=== PATIENT | male | born 1940 | race Caucasian/White ===

== ENCOUNTER 2019-10-31 07:11 | Inpatient (IN) | payer BC, MEDICARE ==
[~2019-10-31] VITALS: Ht 182.9 cm; Wt 101.8 kg
[2019-10-31] MEDS ORDERED: SODIUM CHLORIDE 0.9% 500 ML IV ONE (07:49)
[2019-10-31] MEDS ORDERED: ACETAMINOPHEN 325MG TABLET PO STA (07:49)
[2019-10-31 08:48] LABS: BASOPHILS % 0.6 % (0.0-2.0); EOSINOPHILS % 0.1 % (0.0-5.0); HEMATOCRIT. 47.8 % (42.0-52.0); HEMOGLOBIN. 16.1 g/dL (14.0-18.0); LYMPHOCYTES % 10.4 % (20.0-50.0); MEAN CORPUSCULAR HEMOGLOBIN 28.8 pg (28.0-32.0); MEAN CORPUSCULAR VOLUME 85.5 fL (80.0-94.0); MEAN PLATELET VOLUME 8.9 fl (7.4-10.4); MONOCYTES % 6.7 % (2.0-8.0); NEUTROPHILS % 82.2 % (40.0-76.0); PLATELET 244 x1000/uL (130-400); RED CELL DISTRIBUTION WIDTH 14.3 % (11.6-14.6)
[2019-10-31 08:52] LABS: CHLORIDE 104 mEq/L (98-107); INR 1.1
[2019-10-31 08:56] LABS: ETHANOL BLOOD < 10 mg/dL
[2019-10-31 09:01] LABS: CREATINE KINASE 375 IU/L (39-308)
[2019-10-31 09:04] LABS: CREATINE KINASE MB FRACTION 7.7 ng/mL (0.5-3.6)
[2019-10-31] MEDS ORDERED: ASPIRIN 81MG TABLET PO ONE (09:30)
[2019-10-31 10:36] LABS: CREATINE KINASE MB FRACTION 9.2 ng/mL (0.5-3.6)
[2019-10-31] MEDS ORDERED: ACETAMINOPHEN 325MG TABLET PO PRN (10:45)
[2019-10-31] MEDS ORDERED: ONDANSETRON HCL 4MG/2ML INJ IV PRN (10:45)
[2019-10-31] MEDS ORDERED: METOPROLOL TARTRATE 25MG TABLET PO ONE (11:15)
[2019-10-31] MEDS ORDERED: LISINOPRIL 5MG TABLET PO SCH (11:30)
[2019-10-31 13:24] LABS: CLARITY URINE CLOUDY (CLEAR); COLOR URINE DARK YELLOW (YELLOW); KETONES URINE 1+ (NEGATIVE); LEUKOCYTE ESTERASE URINE NEGATIVE (NEGATIVE); NITRITE URINE NEGATIVE (NEGATIVE); OCCULT BLOOD URINE NEGATIVE (NEGATIVE); PROTEIN URINE 2+ (NEGATIVE); SPECIFIC GRAVITY URINE 1.032 (1.005-1.030)
[2019-10-31 13:47] LABS: OPIATES URINE SCREEN NEGATIVE (NEGATIVE); PHENCYCLIDINE URINE SCREEN NEGATIVE (NEGATIVE)
[2019-10-31 13:48] LABS: *AMPHETAMINES SCREEN URINE NEGATIVE (NEGATIVE); *BARBITURATES SCREEN URINE NEGATIVE (NEGATIVE); *BENZODIAZEPINES SCREEN URINE NEGATIVE (NEGATIVE); *COCAINE SCREEN URINE NEGATIVE (NEGATIVE); CANNABINOID URINE SCREEN NEGATIVE (NEGATIVE)
[2019-10-31 13:49] LABS: METHADONE URINE SCREEN NEGATIVE (NEGATIVE)
[2019-10-31] MEDS ORDERED: METOPROLOL TARTRATE 50MG TABLET PO NR (17:30)
[2019-10-31] MEDS ORDERED: DEXTROSE 50% WATER 50ML SYRINGE IV PRN (17:30)
[2019-10-31] MEDS ORDERED: ATORVASTATIN CALCIUM 20MG TABLET PO SCH (21:00)
[2019-10-31] MEDS: INSULIN LISPRO 100 UNITS/ML SUBCUT SCH (21:00)
[2019-10-31] MEDS ORDERED: ENOXAPARIN 100MG/ML SYR SUBCUT SCH (21:00)
[2019-10-31] MEDS: BLOOD SUGAR DIAGNOSTIC STRIP TEST SCH (21:00)
[2019-10-31 22:00] VITALS: BP_SYST 140; BP_SYST 145; BP_DIAS 92; BP_DIAS 95
[2019-11-01] VITALS (15 sets, daily range): BP systolic 97–170; BP diastolic 49–93
[2019-11-01] MEDS: ATORVASTATIN CALCIUM 20MG TABLET PO SCH ×2 (04:00→20:50)
[2019-11-01] MEDS: METOPROLOL TARTRATE 25MG TABLET PO SCH ×3 (05:03→20:51)
[2019-11-01 05:39] LABS: EOSINOPHILS % 1.3 % (0.0-5.0); HEMATOCRIT. 44.5 % (42.0-52.0); HEMOGLOBIN. 15.3 g/dL (14.0-18.0); LYMPHOCYTES % 17.6 % (20.0-50.0); MEAN CORPUSCULAR HEMOGLOBIN 29.3 pg (28.0-32.0); MEAN CORPUSCULAR VOLUME 85.5 fL (80.0-94.0); MEAN PLATELET VOLUME 8.8 fl (7.4-10.4); NEUTROPHILS % 73.1 % (40.0-76.0); PLATELET 224 x1000/uL (130-400); RED BLOOD CELL COUNT 5.21 mill/uL (4.7-6.1); RED CELL DISTRIBUTION WIDTH 14.4 % (11.6-14.6)
[2019-11-01 05:57] LABS: CHLORIDE 106 mEq/L (98-107)
[2019-11-01] MEDS: BLOOD SUGAR DIAGNOSTIC STRIP TEST SCH ×4 (05:58→20:58)
[2019-11-01 06:05] LABS: CREATINE KINASE 288 IU/L (39-308)
[2019-11-01] MEDS: INSULIN LISPRO 100 UNITS/ML SUBCUT SCH ×4 (07:20→20:58)
[2019-11-01] MEDS ORDERED: ASPIRIN 81MG EC TABLET PO SCH ×2 (09:00)
[2019-11-01] MEDS: LISINOPRIL 5MG TABLET PO SCH (09:21)
[2019-11-02] VITALS (15 sets, daily range): BP systolic 110–148; BP diastolic 64–95
[2019-11-02] MEDS: BLOOD SUGAR DIAGNOSTIC STRIP TEST SCH ×4 (05:43→21:30)
[2019-11-02] MEDS: ASPIRIN 325MG EC TABLET PO SCH (08:29)
[2019-11-02] MEDS: LISINOPRIL 5MG TABLET PO SCH (08:29)
[2019-11-02] MEDS: INSULIN LISPRO 100 UNITS/ML SUBCUT SCH ×4 (09:17→21:47)
[2019-11-02] MEDS: METOPROLOL TARTRATE 25MG TABLET PO SCH ×2 (09:22→21:32)
[2019-11-02 12:35] LABS: BASOPHILS % 0.8 % (0.0-2.0); EOSINOPHILS % 0.8 % (0.0-5.0); HEMATOCRIT. 47.4 % (42.0-52.0); HEMOGLOBIN. 16.3 g/dL (14.0-18.0); MEAN CORPUSCULAR HEMOGLOBIN 29.5 pg (28.0-32.0); MEAN CORPUSCULAR VOLUME 85.5 fL (80.0-94.0); MONOCYTES % 7.9 % (2.0-8.0); NEUTROPHILS % 67.5 % (40.0-76.0); PLATELET 245 x1000/uL (130-400); RED BLOOD CELL COUNT 5.54 mill/uL (4.7-6.1)
[2019-11-02 12:42] LABS: CHLORIDE 105 mEq/L (98-107)
[2019-11-02] MEDS: ATORVASTATIN CALCIUM 20MG TABLET PO SCH (21:32)
[2019-11-03] VITALS (15 sets, daily range): BP systolic 121–179; BP diastolic 50–110
[2019-11-03] MEDS: BLOOD SUGAR DIAGNOSTIC STRIP TEST SCH ×4 (05:50→20:23)
[2019-11-03 06:22] LABS: FOLIC ACID (FOLATE) SERUM 12.7 ng/mL (>5.38)
[2019-11-03] MEDS: INSULIN LISPRO 100 UNITS/ML SUBCUT SCH ×4 (08:11→20:35)
[2019-11-03] MEDS: ASPIRIN 325MG EC TABLET PO SCH (08:12)
[2019-11-03] MEDS: METOPROLOL TARTRATE 25MG TABLET PO SCH ×2 (08:12→20:23)
[2019-11-03] MEDS: LISINOPRIL 5MG TABLET PO SCH (08:12)
[2019-11-03] MEDS ORDERED: LISINOPRIL 5MG TABLET PO NR (09:15)
[2019-11-03] MEDS: APIXABAN 5 MG TABLET PO SCH ×2 (09:53→18:09)
[2019-11-03] MEDS: CYANOCOBALAMIN 1000MCG/ML VIAL IM SCH (13:24)
[2019-11-03] MEDS: ATORVASTATIN CALCIUM 20MG TABLET PO SCH (20:23)
[2019-11-04] VITALS (9 sets, daily range): BP systolic 99–161; BP diastolic 55–102
[2019-11-04] MEDS: BLOOD SUGAR DIAGNOSTIC STRIP TEST SCH ×3 (07:15→16:53)
[2019-11-04 07:26] LABS: BASOPHILS % 0.6 % (0.0-2.0); EOSINOPHILS % 1.1 % (0.0-5.0); HEMATOCRIT. 46.6 % (42.0-52.0); LYMPHOCYTES % 16.4 % (20.0-50.0); MEAN CORPUSCULAR HEMOGLOBIN 29.4 pg (28.0-32.0); MEAN CORPUSCULAR VOLUME 85.5 fL (80.0-94.0); MEAN PLATELET VOLUME 8.8 fl (7.4-10.4); MONOCYTES % 7.6 % (2.0-8.0); NEUTROPHILS % 74.3 % (40.0-76.0); PLATELET 210 x1000/uL (130-400); RED BLOOD CELL COUNT 5.45 mill/uL (4.7-6.1); RED CELL DISTRIBUTION WIDTH 14.1 % (11.6-14.6)
[2019-11-04 07:28] LABS: CHLORIDE 105 mEq/L (98-107)
[2019-11-04] MEDS: APIXABAN 5 MG TABLET PO SCH (08:34)
[2019-11-04] MEDS: METOPROLOL TARTRATE 25MG TABLET PO SCH (08:35)
[2019-11-04] MEDS: CYANOCOBALAMIN 1000MCG/ML VIAL IM SCH (08:35)
[2019-11-04] MEDS: INSULIN LISPRO 100 UNITS/ML SUBCUT SCH ×3 (08:37→16:53)
[2019-11-04] MEDS ORDERED: LISINOPRIL 10MG TABLET PO SCH (09:00)
[2019-11-05] MEDS ORDERED: NITR0.4T SL (05:58)
[2019-11-05] MEDS ORDERED: METO75TA PO (05:58)
[2019-11-05] MEDS ORDERED: HYDR25TA PO (05:58)
[2019-11-05] MEDS ORDERED: ASPI-1497 PO (05:58)
[2019-11-05] MEDS ORDERED: ENAL20TA PO (05:58)
[2019-11-08 09:06] LABS: 25-HYDROXY VITAMIN D3 6.1 ng/mL (.)
[2019-11-17] MEDS ORDERED: CYANOCOBALAMIN 1000MCG/ML VIAL IM SCH (09:00)
== END 2019-11-04 17:30 | DRG 64 ==
LOC: ER 07:21 → 6WST 09:31 → UNDOADMIN 09:31 → EDBEDREQ 09:35 → EDBEDREQSVC 09:35 → ENRESERV 10:27 → 3WST 19:30 → CMPBEDREQ 11-01 07:09
PROVIDERS: ADMIT Internal Medicine; ATTEND Internal Medicine
DX: I63.9 Cerebral infarction, unspecified (principal); I21.4 Non-ST elevation (NSTEMI) myocardial infarction; M62.82 Rhabdomyolysis; I48.92 Unspecified atrial flutter; E11.52 Type 2 diabetes mellitus with diabetic peripheral angiopathy with gangrene; E78.5 Hyperlipidemia, unspecified; I48.91 Unspecified atrial fibrillation; I25.10 Atherosclerotic heart disease of native coronary artery without angina pectoris; L98.9 Disorder of the skin and subcutaneous tissue, unspecified; E78.00 Pure hypercholesterolemia, unspecified; L57.0 Actinic keratosis; E53.8 Deficiency of other specified B group vitamins; I11.0 Hypertensive heart disease with heart failure; I50.9 Heart failure, unspecified; M19.90 Unspecified osteoarthritis, unspecified site; G90.8 Other disorders of autonomic nervous system; Z53.29 Procedure and treatment not carried out because of patient's decision for other reasons; Z60.2 Problems related to living alone; I65.22 Occlusion and stenosis of left carotid artery; Z79.82 Long term (current) use of aspirin; Z86.73 Personal history of transient ischemic attack (TIA), and cerebral infarction without residual deficits; Z83.3 Family history of diabetes mellitus; Z91.19 Patient's noncompliance with other medical treatment and regimen; Z79.899 Other long term (current) drug therapy; Z95.5 Presence of coronary angioplasty implant and graft; I25.2 Old myocardial infarction
CPT/HCPCS: 36415; 70486; 70551; 71045; 72170; 73080; 73562; 80048; 80053; 80061; 80305; 80320; 81003; 82306; 82550; 82553; 82607; 82746; 82962; 83036; 83735; 83880; 84145; 84443; 84484; 85025; 92523; 92610; 93005; 93306; 93880; 97116; 97162; 97166; 97530; 99291; J1650; J1815; J3420; J7040; G0480

== ENCOUNTER 2019-11-04 18:30 | Inpatient (IN) | payer MEDICARE, OTHER ==
[~2019-11-04] VITALS: Ht 182.9 cm; Wt 105.7 kg
[2019-11-04 17:30] VITALS: BP_SYST 106; BP_SYST 132; BP_DIAS 72; BP_DIAS 90
[2019-11-04 18:45] VITALS: BP 132/90
[2019-11-04] MEDS ORDERED: ACETAMINOPHEN 325MG TABLET PO PRN (18:45)
[2019-11-04] MEDS ORDERED: DEXTROSE 50% WATER 50ML SYRINGE IV PRN (18:45)
[2019-11-04] MEDS ORDERED: ONDANSETRON HCL 4MG TABLET PO PRN (18:45)
[2019-11-04 20:00] VITALS: BP 137/80
[2019-11-04] MEDS ORDERED: PNEUMOCOCCAL 23-VAL P-SAC VAC 0.5 ML IM ONE (20:30)
[2019-11-04] MEDS: ATORVASTATIN CALCIUM 20MG TABLET PO SCH (20:30)
[2019-11-04] MEDS: METOPROLOL TARTRATE 25MG TABLET PO SCH (20:31)
[2019-11-04] MEDS: BLOOD SUGAR DIAGNOSTIC STRIP TEST SCH (20:31)
[2019-11-04] MEDS: INSULIN LISPRO 100 UNITS/ML SUBCUT SCH (22:22)
[2019-11-05] MEDS: BLOOD SUGAR DIAGNOSTIC STRIP TEST SCH ×4 (05:33→21:05)
[2019-11-05] MEDS: INSULIN LISPRO 100 UNITS/ML SUBCUT SCH (05:33)
[2019-11-05] MEDS ORDERED: NITR0.4T SL (05:58)
[2019-11-05] MEDS ORDERED: HYDR25TA PO (05:58)
[2019-11-05] MEDS ORDERED: ASPI-1497 PO (05:58)
[2019-11-05] MEDS ORDERED: ENAL20TA PO (05:58)
[2019-11-05] MEDS ORDERED: METO75TA PO (05:58)
[2019-11-05 06:44] LABS: BASOPHILS % 0.7 % (0.0-2.0); EOSINOPHILS % 1.6 % (0.0-5.0); HEMATOCRIT. 46.8 % (42.0-52.0); HEMOGLOBIN. 15.8 g/dL (14.0-18.0); LYMPHOCYTES % 20.3 % (20.0-50.0); MEAN CORPUSCULAR HEMOGLOBIN 28.9 pg (28.0-32.0); MEAN CORPUSCULAR VOLUME 85.8 fL (80.0-94.0); MEAN PLATELET VOLUME 9.1 fl (7.4-10.4); MONOCYTES % 9.2 % (2.0-8.0); NEUTROPHILS % 68.2 % (40.0-76.0); PLATELET 204 x1000/uL (130-400); RED BLOOD CELL COUNT 5.45 mill/uL (4.7-6.1); RED CELL DISTRIBUTION WIDTH 14.2 % (11.6-14.6)
[2019-11-05 06:53] LABS: CHLORIDE 104 mEq/L (98-107)
[2019-11-05 08:00] VITALS: BP 149/85
[2019-11-05] MEDS ORDERED: NA PHOS,M-B/NA PHOS,DI-BA ENEMA 118ML PR PRN (09:00)
[2019-11-05] MEDS: APIXABAN 5 MG TABLET PO SCH ×2 (09:21→17:35)
[2019-11-05] MEDS: LISINOPRIL 10MG TABLET PO SCH (09:22)
[2019-11-05] MEDS: METOPROLOL TARTRATE 25MG TABLET PO SCH ×2 (09:22→21:05)
[2019-11-05] MEDS: LACTULOSE 20G/30ML UDC PO SCH ×3 (12:00→23:14)
[2019-11-05] MEDS ORDERED: INSULIN LISPRO 100 UNITS/ML SUBCUT SCH (13:00)
[2019-11-05] MEDS: LINAGLIPTIN 5MG TABLET PO SCH (13:39)
[2019-11-05] MEDS: INSULIN LISPRO (LOW DOSE) 100 UNITS/ML SUBCUT SCH ×2 (13:41→17:00)
[2019-11-05 20:00] VITALS: BP 158/78
[2019-11-05] MEDS: ATORVASTATIN CALCIUM 20MG TABLET PO SCH (21:05)
[2019-11-06] MEDS: BISACODYL 5MG TABLET PO PRN (05:12)
[2019-11-06] MEDS: BLOOD SUGAR DIAGNOSTIC STRIP TEST SCH ×4 (05:12→20:16)
[2019-11-06] MEDS: LACTULOSE 20G/30ML UDC PO SCH ×2 (06:00→12:00)
[2019-11-06] MEDS: INSULIN LISPRO (LOW DOSE) 100 UNITS/ML SUBCUT SCH ×3 (06:35→16:20)
[2019-11-06 07:24] LABS: BASOPHILS % 0.6 % (0.0-2.0); EOSINOPHILS % 1.9 % (0.0-5.0); HEMATOCRIT. 48.2 % (42.0-52.0); HEMOGLOBIN. 16.6 g/dL (14.0-18.0); LYMPHOCYTES % 19.2 % (20.0-50.0); MEAN CORPUSCULAR HEMOGLOBIN 29.6 pg (28.0-32.0); MEAN CORPUSCULAR VOLUME 85.9 fL (80.0-94.0); MEAN PLATELET VOLUME 8.9 fl (7.4-10.4); MONOCYTES % 9.2 % (2.0-8.0); NEUTROPHILS % 69.1 % (40.0-76.0); PLATELET 219 x1000/uL (130-400); RED BLOOD CELL COUNT 5.62 mill/uL (4.7-6.1); RED CELL DISTRIBUTION WIDTH 14.2 % (11.6-14.6)
[2019-11-06 07:28] LABS: CHLORIDE 105 mEq/L (98-107)
[2019-11-06 08:27] VITALS: BP 147/81
[2019-11-06] MEDS: LINAGLIPTIN 5MG TABLET PO SCH (08:42)
[2019-11-06] MEDS: LISINOPRIL 10MG TABLET PO SCH (08:42)
[2019-11-06] MEDS: METOPROLOL TARTRATE 25MG TABLET PO SCH ×2 (08:42→20:15)
[2019-11-06] MEDS: APIXABAN 5 MG TABLET PO SCH ×2 (08:42→16:48)
[2019-11-06 20:00] VITALS: BP 130/89
[2019-11-06] MEDS: ATORVASTATIN CALCIUM 20MG TABLET PO SCH (20:15)
[2019-11-07] MEDS: INSULIN LISPRO (LOW DOSE) 100 UNITS/ML SUBCUT SCH ×3 (05:48→16:28)
[2019-11-07] MEDS: BLOOD SUGAR DIAGNOSTIC STRIP TEST SCH ×4 (05:48→21:38)
[2019-11-07 06:43] LABS: BASOPHILS % 0.8 % (0.0-2.0); EOSINOPHILS % 1.5 % (0.0-5.0); HEMATOCRIT. 48.7 % (42.0-52.0); HEMOGLOBIN. 16.8 g/dL (14.0-18.0); LYMPHOCYTES % 16.6 % (20.0-50.0); MEAN CORPUSCULAR HEMOGLOBIN 29.7 pg (28.0-32.0); MEAN CORPUSCULAR VOLUME 86.4 fL (80.0-94.0); MEAN PLATELET VOLUME 8.9 fl (7.4-10.4); MONOCYTES % 9.6 % (2.0-8.0); NEUTROPHILS % 71.5 % (40.0-76.0); PLATELET 210 x1000/uL (130-400); RED BLOOD CELL COUNT 5.63 mill/uL (4.7-6.1); RED CELL DISTRIBUTION WIDTH 14.1 % (11.6-14.6)
[2019-11-07 07:00] LABS: CHLORIDE 104 mEq/L (98-107)
[2019-11-07 07:07] LABS: PHOSPHORUS 3.2 mg/dL (2.5-4.9)
[2019-11-07 07:23] LABS: PROSTRATE SPECIFIC AG TOTAL 3.69 ng/mL (0.0-4.0)
[2019-11-07 08:09] VITALS: BP 146/82
[2019-11-07] MEDS: METOPROLOL TARTRATE 25MG TABLET PO SCH ×2 (08:33→21:00)
[2019-11-07] MEDS: LISINOPRIL 10MG TABLET PO SCH (08:33)
[2019-11-07] MEDS: LINAGLIPTIN 5MG TABLET PO SCH (08:33)
[2019-11-07] MEDS: APIXABAN 5 MG TABLET PO SCH ×2 (08:33→17:08)
[2019-11-07 20:00] VITALS: BP 125/55
[2019-11-07] MEDS: ATORVASTATIN CALCIUM 20MG TABLET PO SCH (21:25)
[2019-11-08] MEDS: BLOOD SUGAR DIAGNOSTIC STRIP TEST SCH ×4 (06:48→21:35)
[2019-11-08] MEDS: INSULIN LISPRO (LOW DOSE) 100 UNITS/ML SUBCUT SCH ×3 (06:48→16:34)
[2019-11-08 08:01] VITALS: BP 122/61
[2019-11-08] MEDS: LINAGLIPTIN 5MG TABLET PO SCH (08:38)
[2019-11-08] MEDS: METOPROLOL TARTRATE 25MG TABLET PO SCH ×2 (08:38→21:27)
[2019-11-08] MEDS: APIXABAN 5 MG TABLET PO SCH ×2 (08:38→17:29)
[2019-11-08] MEDS: LISINOPRIL 10MG TABLET PO SCH (08:38)
[2019-11-08] MEDS: BISACODYL 5MG TABLET PO PRN (17:29)
[2019-11-08 20:00] VITALS: BP 140/68
[2019-11-08] MEDS: ATORVASTATIN CALCIUM 20MG TABLET PO SCH (21:26)
[2019-11-09] MEDS: BLOOD SUGAR DIAGNOSTIC STRIP TEST SCH ×4 (06:14→21:41)
[2019-11-09] MEDS: INSULIN LISPRO (LOW DOSE) 100 UNITS/ML SUBCUT SCH ×3 (06:15→17:00)
[2019-11-09 08:07] VITALS: BP 151/84
[2019-11-09] MEDS: METOPROLOL TARTRATE 25MG TABLET PO SCH ×2 (09:30→21:40)
[2019-11-09] MEDS: LISINOPRIL 10MG TABLET PO SCH (09:30)
[2019-11-09] MEDS: LINAGLIPTIN 5MG TABLET PO SCH (09:31)
[2019-11-09] MEDS: APIXABAN 5 MG TABLET PO SCH ×2 (09:31→17:27)
[2019-11-09 19:55] VITALS: BP 136/77
[2019-11-09] MEDS: ATORVASTATIN CALCIUM 20MG TABLET PO SCH (21:40)
[2019-11-10] MEDS: BLOOD SUGAR DIAGNOSTIC STRIP TEST SCH ×4 (05:54→21:13)
[2019-11-10] MEDS: INSULIN LISPRO (LOW DOSE) 100 UNITS/ML SUBCUT SCH ×4 (06:46→22:07)
[2019-11-10 07:35] LABS: BASOPHILS % 0.7 % (0.0-2.0); EOSINOPHILS % 1.1 % (0.0-5.0); HEMATOCRIT. 51.9 % (42.0-52.0); HEMOGLOBIN. 17.3 g/dL (14.0-18.0); LYMPHOCYTES % 22.6 % (20.0-50.0); MEAN CORPUSCULAR HEMOGLOBIN 29.2 pg (28.0-32.0); MEAN CORPUSCULAR VOLUME 87.3 fL (80.0-94.0); MEAN PLATELET VOLUME 9.8 fl (7.4-10.4); MONOCYTES % 8.5 % (2.0-8.0); NEUTROPHILS % 67.1 % (40.0-76.0); PLATELET 244 x1000/uL (130-400); RED BLOOD CELL COUNT 5.94 mill/uL (4.7-6.1); RED CELL DISTRIBUTION WIDTH 14.5 % (11.6-14.6)
[2019-11-10 07:37] VITALS: BP 150/84
[2019-11-10 07:39] LABS: CHLORIDE 103 mEq/L (98-107)
[2019-11-10] MEDS: LISINOPRIL 10MG TABLET PO SCH (08:48)
[2019-11-10] MEDS: METOPROLOL TARTRATE 25MG TABLET PO SCH ×2 (08:49→21:12)
[2019-11-10] MEDS: CYANOCOBALAMIN 1000MCG/ML VIAL IM SCH (08:49)
[2019-11-10] MEDS: LINAGLIPTIN 5MG TABLET PO SCH (08:49)
[2019-11-10] MEDS: APIXABAN 5 MG TABLET PO SCH ×2 (09:00→16:37)
[2019-11-10 20:00] VITALS: BP 134/84
[2019-11-10] MEDS: ATORVASTATIN CALCIUM 20MG TABLET PO SCH (21:11)
[2019-11-11] MEDS: BLOOD SUGAR DIAGNOSTIC STRIP TEST SCH ×5 (05:36→20:52)
[2019-11-11 07:09] LABS: 25-HYDROXY VITAMIN D3 8.2 ng/mL (.)
[2019-11-11] MEDS: INSULIN LISPRO (LOW DOSE) 100 UNITS/ML SUBCUT SCH ×3 (07:14→16:23)
[2019-11-11 07:58] VITALS: BP 168/91
[2019-11-11] MEDS: METOPROLOL TARTRATE 25MG TABLET PO SCH ×2 (08:11→20:56)
[2019-11-11] MEDS: LISINOPRIL 10MG TABLET PO SCH (08:11)
[2019-11-11] MEDS: APIXABAN 5 MG TABLET PO SCH ×2 (08:11→16:27)
[2019-11-11] MEDS: LINAGLIPTIN 5MG TABLET PO SCH (08:11)
[2019-11-11] MEDS ORDERED: LISINOPRIL 10MG TABLET PO SCH (09:00)
[2019-11-11 20:00] VITALS: BP 136/71
[2019-11-11] MEDS: ATORVASTATIN CALCIUM 20MG TABLET PO SCH (20:56)
[2019-11-11] MEDS ORDERED: ERGOCALCIFEROL 50000UNITS CAPSULE PO SCH (21:00)
[2019-11-12] MEDS: BISACODYL 5MG TABLET PO PRN (06:03)
[2019-11-12] MEDS: INSULIN LISPRO (LOW DOSE) 100 UNITS/ML SUBCUT SCH ×3 (06:09→16:33)
[2019-11-12] MEDS: BLOOD SUGAR DIAGNOSTIC STRIP TEST SCH ×4 (06:09→20:17)
[2019-11-12 06:41] LABS: BASOPHILS % 0.6 % (0.0-2.0); EOSINOPHILS % 1.1 % (0.0-5.0); HEMOGLOBIN. 16.6 g/dL (14.0-18.0); LYMPHOCYTES % 16.1 % (20.0-50.0); MEAN CORPUSCULAR HEMOGLOBIN 28.8 pg (28.0-32.0); MEAN CORPUSCULAR VOLUME 86.6 fL (80.0-94.0); MEAN PLATELET VOLUME 9.5 fl (7.4-10.4); MONOCYTES % 8.6 % (2.0-8.0); NEUTROPHILS % 73.6 % (40.0-76.0); PLATELET 222 x1000/uL (130-400); RED BLOOD CELL COUNT 5.77 mill/uL (4.7-6.1); RED CELL DISTRIBUTION WIDTH 14.7 % (11.6-14.6)
[2019-11-12 07:29] LABS: CHLORIDE 106 mEq/L (98-107)
[2019-11-12 07:38] VITALS: BP 138/74
[2019-11-12] MEDS: APIXABAN 5 MG TABLET PO SCH ×2 (08:25→16:44)
[2019-11-12] MEDS: LINAGLIPTIN 5MG TABLET PO SCH (08:25)
[2019-11-12] MEDS: LISINOPRIL 20MG TABLET PO SCH (08:25)
[2019-11-12] MEDS: METOPROLOL TARTRATE 25MG TABLET PO SCH ×2 (08:26→20:17)
[2019-11-12 20:00] VITALS: BP 136/61
[2019-11-12] MEDS: ATORVASTATIN CALCIUM 40MG TABLET PO SCH (20:17)
[2019-11-13] MEDS: INSULIN LISPRO (LOW DOSE) 100 UNITS/ML SUBCUT SCH ×3 (05:54→17:00)
[2019-11-13] MEDS: BLOOD SUGAR DIAGNOSTIC STRIP TEST SCH ×4 (05:54→20:51)
[2019-11-13 07:45] LABS: BASOPHILS % 0.5 % (0.0-2.0); HEMATOCRIT. 46.8 % (42.0-52.0); LYMPHOCYTES % 23.3 % (20.0-50.0); MEAN CORPUSCULAR HEMOGLOBIN 29.6 pg (28.0-32.0); MEAN CORPUSCULAR VOLUME 86.8 fL (80.0-94.0); MEAN PLATELET VOLUME 10.1 fl (7.4-10.4); MONOCYTES % 10.4 % (2.0-8.0); NEUTROPHILS % 64.8 % (40.0-76.0); PLATELET 226 x1000/uL (130-400); RED BLOOD CELL COUNT 5.39 mill/uL (4.7-6.1); RED CELL DISTRIBUTION WIDTH 14.4 % (11.6-14.6)
[2019-11-13 08:00] VITALS: BP 161/75
[2019-11-13 08:13] LABS: CLARITY URINE CLEAR (CLEAR); COLOR URINE DARK YELLOW (YELLOW); KETONES URINE 1+ (NEGATIVE); LEUKOCYTE ESTERASE URINE TRACE (NEGATIVE); NITRITE URINE NEGATIVE (NEGATIVE); OCCULT BLOOD URINE NEGATIVE (NEGATIVE); PROTEIN URINE 1+ (NEGATIVE); SPECIFIC GRAVITY URINE 1.023 (1.005-1.030)
[2019-11-13] MEDS: LISINOPRIL 20MG TABLET PO SCH (09:13)
[2019-11-13] MEDS: LINAGLIPTIN 5MG TABLET PO SCH (09:13)
[2019-11-13] MEDS: APIXABAN 5 MG TABLET PO SCH ×2 (09:13→17:54)
[2019-11-13] MEDS: METOPROLOL TARTRATE 25MG TABLET PO SCH ×2 (09:13→20:50)
[2019-11-13 20:00] VITALS: BP 106/37
[2019-11-13] MEDS: ATORVASTATIN CALCIUM 40MG TABLET PO SCH (20:50)
[2019-11-14] MEDS: BLOOD SUGAR DIAGNOSTIC STRIP TEST SCH ×4 (06:12→21:14)
[2019-11-14] MEDS: INSULIN LISPRO (LOW DOSE) 100 UNITS/ML SUBCUT SCH ×3 (06:15→16:59)
[2019-11-14 08:00] VITALS: BP 128/67
[2019-11-14 08:03] LABS: BASOPHILS % 0.6 % (0.0-2.0); EOSINOPHILS % 1.3 % (0.0-5.0); HEMOGLOBIN. 16.9 g/dL (14.0-18.0); LYMPHOCYTES % 25.6 % (20.0-50.0); MEAN CORPUSCULAR HEMOGLOBIN 29.1 pg (28.0-32.0); MEAN CORPUSCULAR VOLUME 86.4 fL (80.0-94.0); MEAN PLATELET VOLUME 10.3 fl (7.4-10.4); MONOCYTES % 10.4 % (2.0-8.0); NEUTROPHILS % 62.1 % (40.0-76.0); PLATELET 221 x1000/uL (130-400); RED BLOOD CELL COUNT 5.79 mill/uL (4.7-6.1); RED CELL DISTRIBUTION WIDTH 14.3 % (11.6-14.6)
[2019-11-14] MEDS: METOPROLOL TARTRATE 25MG TABLET PO SCH ×2 (08:54→21:29)
[2019-11-14] MEDS: LISINOPRIL 20MG TABLET PO SCH (08:54)
[2019-11-14] MEDS: LINAGLIPTIN 5MG TABLET PO SCH (08:54)
[2019-11-14] MEDS: APIXABAN 5 MG TABLET PO SCH ×2 (08:54→16:55)
[2019-11-14] MEDS: BISACODYL 5MG TABLET PO PRN (16:55)
[2019-11-14 20:00] VITALS: BP 126/84
[2019-11-14] MEDS: ATORVASTATIN CALCIUM 40MG TABLET PO SCH (21:29)
[2019-11-15] MEDS: INSULIN LISPRO (LOW DOSE) 100 UNITS/ML SUBCUT SCH ×3 (06:26→16:39)
[2019-11-15] MEDS: BLOOD SUGAR DIAGNOSTIC STRIP TEST SCH ×4 (06:27→21:00)
[2019-11-15 07:28] VITALS: BP 154/104
[2019-11-15] MEDS: LISINOPRIL 20MG TABLET PO SCH ×2 (08:15→09:00)
[2019-11-15] MEDS: LINAGLIPTIN 5MG TABLET PO SCH (08:15)
[2019-11-15] MEDS: APIXABAN 5 MG TABLET PO SCH ×2 (08:15→20:54)
[2019-11-15] MEDS: METOPROLOL TARTRATE 25MG TABLET PO SCH ×2 (08:15→20:55)
[2019-11-15 20:00] VITALS: BP 136/61
[2019-11-15] MEDS: ATORVASTATIN CALCIUM 40MG TABLET PO SCH (20:55)
[2019-11-16] MEDS: BLOOD SUGAR DIAGNOSTIC STRIP TEST SCH ×4 (06:30→21:00)
[2019-11-16] MEDS: INSULIN LISPRO (LOW DOSE) 100 UNITS/ML SUBCUT SCH ×4 (07:00→22:11)
[2019-11-16 07:51] VITALS: BP 155/97
[2019-11-16] MEDS: METOPROLOL TARTRATE 25MG TABLET PO SCH ×2 (08:43→22:10)
[2019-11-16] MEDS: APIXABAN 5 MG TABLET PO SCH ×2 (08:43→16:18)
[2019-11-16] MEDS: LINAGLIPTIN 5MG TABLET PO SCH (08:43)
[2019-11-16] MEDS: LISINOPRIL 20MG TABLET PO SCH (08:43)
[2019-11-16 20:00] VITALS: BP 106/73
[2019-11-16] MEDS: ATORVASTATIN CALCIUM 40MG TABLET PO SCH (22:10)
[2019-11-17] MEDS: BLOOD SUGAR DIAGNOSTIC STRIP TEST SCH ×4 (06:04→20:33)
[2019-11-17 07:54] VITALS: BP 156/82
[2019-11-17 09:01] LABS: CHLORIDE 105 mEq/L (98-107)
[2019-11-17] MEDS: CYANOCOBALAMIN 1000MCG/ML VIAL IM SCH (09:10)
[2019-11-17] MEDS: APIXABAN 5 MG TABLET PO SCH ×2 (09:10→18:47)
[2019-11-17] MEDS: LISINOPRIL 20MG TABLET PO SCH (09:10)
[2019-11-17] MEDS: METOPROLOL TARTRATE 25MG TABLET PO SCH ×2 (09:10→20:33)
[2019-11-17] MEDS: LINAGLIPTIN 5MG TABLET PO SCH (09:10)
[2019-11-17 09:13] LABS: BASOPHILS % 0.6 % (0.0-2.0); HEMATOCRIT. 49.5 % (42.0-52.0); HEMOGLOBIN. 16.6 g/dL (14.0-18.0); LYMPHOCYTES % 22.6 % (20.0-50.0); MEAN CORPUSCULAR HEMOGLOBIN 29.2 pg (28.0-32.0); MEAN CORPUSCULAR VOLUME 87.3 fL (80.0-94.0); MEAN PLATELET VOLUME 9.9 fl (7.4-10.4); MONOCYTES % 8.2 % (2.0-8.0); NEUTROPHILS % 67.6 % (40.0-76.0); PLATELET 243 x1000/uL (130-400); RED BLOOD CELL COUNT 5.67 mill/uL (4.7-6.1); RED CELL DISTRIBUTION WIDTH 14.9 % (11.6-14.6)
[2019-11-17] MEDS: INSULIN LISPRO (LOW DOSE) 100 UNITS/ML SUBCUT SCH ×2 (13:00→17:00)
[2019-11-17 20:00] VITALS: BP 100/54
[2019-11-17] MEDS: ATORVASTATIN CALCIUM 40MG TABLET PO SCH (20:33)
[2019-11-18] MEDS: BISACODYL 5MG TABLET PO PRN (06:12)
[2019-11-18] MEDS: BLOOD SUGAR DIAGNOSTIC STRIP TEST SCH ×4 (06:12→20:07)
[2019-11-18] MEDS: INSULIN LISPRO (LOW DOSE) 100 UNITS/ML SUBCUT SCH ×3 (06:17→16:35)
[2019-11-18 08:01] VITALS: BP 125/83
[2019-11-18] MEDS ORDERED: ERGOCALCIFEROL 50000UNITS CAPSULE PO SCH (09:00)
[2019-11-18] MEDS: APIXABAN 5 MG TABLET PO SCH ×2 (09:12→17:30)
[2019-11-18] MEDS: LISINOPRIL 20MG TABLET PO SCH (09:12)
[2019-11-18] MEDS: METOPROLOL TARTRATE 25MG TABLET PO SCH ×2 (09:12→20:06)
[2019-11-18] MEDS: LINAGLIPTIN 5MG TABLET PO SCH (09:12)
[2019-11-18 20:00] VITALS: BP 122/57
[2019-11-18] MEDS: ATORVASTATIN CALCIUM 40MG TABLET PO SCH (20:06)
[2019-11-19] MEDS: BLOOD SUGAR DIAGNOSTIC STRIP TEST SCH ×4 (06:13→21:18)
[2019-11-19] MEDS: INSULIN LISPRO (LOW DOSE) 100 UNITS/ML SUBCUT SCH ×3 (06:16→16:25)
[2019-11-19 08:06] VITALS: BP 121/72
[2019-11-19] MEDS: LINAGLIPTIN 5MG TABLET PO SCH (08:25)
[2019-11-19] MEDS: LISINOPRIL 20MG TABLET PO SCH (08:25)
[2019-11-19] MEDS: APIXABAN 5 MG TABLET PO SCH ×2 (08:25→16:58)
[2019-11-19] MEDS: METOPROLOL TARTRATE 25MG TABLET PO SCH ×2 (08:25→20:49)
[2019-11-19 11:40] VITALS: BP 101/47
[2019-11-19 20:00] VITALS: BP 130/69
[2019-11-19] MEDS: ATORVASTATIN CALCIUM 40MG TABLET PO SCH (21:48)
[2019-11-20] MEDS: BLOOD SUGAR DIAGNOSTIC STRIP TEST SCH ×4 (06:46→20:26)
[2019-11-20] MEDS: INSULIN LISPRO (LOW DOSE) 100 UNITS/ML SUBCUT SCH ×3 (07:00→17:00)
[2019-11-20 07:41] LABS: CHLORIDE 106 mEq/L (98-107)
[2019-11-20 08:20] VITALS: BP 103/61
[2019-11-20] MEDS: METOPROLOL TARTRATE 25MG TABLET PO SCH ×2 (09:00→20:26)
[2019-11-20] MEDS ORDERED: LISINOPRIL 10MG TABLET PO SCH (09:00)
[2019-11-20] MEDS ORDERED: LISINOPRIL 20MG TABLET PO SCH (09:00)
[2019-11-20] MEDS: LINAGLIPTIN 5MG TABLET PO SCH (09:30)
[2019-11-20] MEDS: APIXABAN 5 MG TABLET PO SCH ×2 (09:30→17:33)
[2019-11-20 20:00] VITALS: BP 112/59
[2019-11-20] MEDS: ATORVASTATIN CALCIUM 40MG TABLET PO SCH (20:25)
[2019-11-21 06:50] LABS: CHLORIDE 105 mEq/L (98-107)
[2019-11-21 06:56] LABS: BASOPHILS % 0.4 % (0.0-2.0); EOSINOPHILS % 1.2 % (0.0-5.0); HEMATOCRIT. 46.9 % (42.0-52.0); HEMOGLOBIN. 16.2 g/dL (14.0-18.0); LYMPHOCYTES % 18.8 % (20.0-50.0); MEAN CORPUSCULAR HEMOGLOBIN 29.6 pg (28.0-32.0); MEAN CORPUSCULAR VOLUME 85.6 fL (80.0-94.0); MEAN PLATELET VOLUME 10.1 fl (7.4-10.4); MONOCYTES % 9.3 % (2.0-8.0); NEUTROPHILS % 70.3 % (40.0-76.0); PLATELET 205 x1000/uL (130-400); RED BLOOD CELL COUNT 5.48 mill/uL (4.7-6.1); RED CELL DISTRIBUTION WIDTH 14.2 % (11.6-14.6)
[2019-11-21] MEDS: INSULIN LISPRO (LOW DOSE) 100 UNITS/ML SUBCUT SCH ×3 (06:56→16:20)
[2019-11-21] MEDS: BLOOD SUGAR DIAGNOSTIC STRIP TEST SCH ×4 (06:56→21:15)
[2019-11-21 07:03] LABS: PHOSPHORUS 2.8 mg/dL (2.5-4.9)
[2019-11-21 08:00] VITALS: BP_SYST 108; BP_SYST 125; BP_DIAS 73; BP_DIAS 76
[2019-11-21] MEDS: METOPROLOL TARTRATE 25MG TABLET PO SCH ×2 (09:07→21:00)
[2019-11-21] MEDS: LISINOPRIL 20MG TABLET PO SCH (09:07)
[2019-11-21] MEDS: APIXABAN 5 MG TABLET PO SCH ×2 (09:07→16:41)
[2019-11-21] MEDS: LINAGLIPTIN 5MG TABLET PO SCH (09:07)
[2019-11-21 20:00] VITALS: BP 104/64
[2019-11-21] MEDS: LISINOPRIL 10MG TABLET PO SCH (21:00)
[2019-11-21] MEDS: ATORVASTATIN CALCIUM 40MG TABLET PO SCH (21:11)
[2019-11-22] MEDS: BLOOD SUGAR DIAGNOSTIC STRIP TEST SCH ×4 (05:33→21:19)
[2019-11-22] MEDS: INSULIN LISPRO (LOW DOSE) 100 UNITS/ML SUBCUT SCH ×3 (06:01→16:40)
[2019-11-22 07:49] VITALS: BP_SYST 146; BP_SYST 97; BP_DIAS 60; BP_DIAS 85
[2019-11-22] MEDS: LISINOPRIL 20MG TABLET PO SCH (08:28)
[2019-11-22] MEDS: LINAGLIPTIN 5MG TABLET PO SCH (08:28)
[2019-11-22] MEDS: METOPROLOL TARTRATE 25MG TABLET PO SCH ×2 (08:28→21:08)
[2019-11-22] MEDS: APIXABAN 5 MG TABLET PO SCH ×2 (08:28→16:40)
[2019-11-22] MEDS ORDERED: APIX5TAB PO (10:52)
[2019-11-22] MEDS ORDERED: LIP40 PO (10:52)
[2019-11-22] MEDS ORDERED: METO25TA6 PO (10:52)
[2019-11-22] MEDS ORDERED: LINA5TAB PO (10:52)
[2019-11-22] MEDS ORDERED: LISI-604 PO (10:52)
[2019-11-22 20:00] VITALS: BP 138/65
[2019-11-22] MEDS: ATORVASTATIN CALCIUM 40MG TABLET PO SCH (21:08)
[2019-11-22] MEDS: LISINOPRIL 10MG TABLET PO SCH (21:09)
[2019-11-23] MEDS: BLOOD SUGAR DIAGNOSTIC STRIP TEST SCH ×2 (06:16→11:26)
[2019-11-23] MEDS: INSULIN LISPRO (LOW DOSE) 100 UNITS/ML SUBCUT SCH ×2 (06:17→12:33)
[2019-11-23 08:10] VITALS: BP 158/85
[2019-11-23] MEDS: METOPROLOL TARTRATE 25MG TABLET PO SCH (09:22)
[2019-11-23] MEDS: LINAGLIPTIN 5MG TABLET PO SCH (09:22)
[2019-11-23] MEDS: LISINOPRIL 20MG TABLET PO SCH (09:22)
[2019-11-23 09:36] VITALS: BP 158/85
[2019-11-23] MEDS: APIXABAN 5 MG TABLET PO SCH (11:26)
== END 2019-11-23 13:30 | disposition home health service (06) | DRG 64 ==
PROVIDERS: ADMIT Physical Medicine & Rehabilitation Spinal Cord Injury Medicine; ATTEND Internal Medicine
DX: I63.9 Cerebral infarction, unspecified (principal); I21.4 Non-ST elevation (NSTEMI) myocardial infarction; M62.82 Rhabdomyolysis; E11.52 Type 2 diabetes mellitus with diabetic peripheral angiopathy with gangrene; I48.20 Chronic atrial fibrillation, unspecified; I48.92 Unspecified atrial flutter; I25.10 Atherosclerotic heart disease of native coronary artery without angina pectoris; Z60.2 Problems related to living alone; I10 Essential (primary) hypertension; I65.22 Occlusion and stenosis of left carotid artery; E53.8 Deficiency of other specified B group vitamins; R53.81 Other malaise; E78.00 Pure hypercholesterolemia, unspecified; D72.829 Elevated white blood cell count, unspecified; B35.1 Tinea unguium; E55.9 Vitamin D deficiency, unspecified; E11.65 Type 2 diabetes mellitus with hyperglycemia; E78.5 Hyperlipidemia, unspecified; R26.9 Unspecified abnormalities of gait and mobility; L98.9 Disorder of the skin and subcutaneous tissue, unspecified; Z79.82 Long term (current) use of aspirin; Z95.5 Presence of coronary angioplasty implant and graft; Z82.49 Family history of ischemic heart disease and other diseases of the circulatory system; Z83.3 Family history of diabetes mellitus; Z86.73 Personal history of transient ischemic attack (TIA), and cerebral infarction without residual deficits; Z91.19 Patient's noncompliance with other medical treatment and regimen; Z87.891 Personal history of nicotine dependence; Z79.899 Other long term (current) drug therapy
CPT/HCPCS: 36415; 71046; 80048; 80053; 81003; 82306; 82533; 82607; 82962; 83036; 83735; 84100; 84134; 84153; 84439; 84443; 84681; 85025; 92523; 92610; 93970; 97110; 97112; 97116; 97162; 97167; 97530; 97535; J1815; J3420; G0103

== ENCOUNTER 2020-03-21 06:41 | Inpatient (IN) | payer MEDICARE, MEDICAID ==
[~2020-03-21] VITALS: Ht 182.9 cm; Wt 96.2 kg
[~2020-03-21 06:41] MED LIST: APIX5TAB PO; LINA5TAB PO; LIP40 PO; LISI-604 PO; METO25TA6 PO; NITR0.4T SL
[2020-03-21] MEDS ORDERED: PIPERACILLIN/TAZ 3.375G PREMIX 50 ML IV ONE (07:00)
[2020-03-21] MEDS ORDERED: SODIUM CHLORIDE 0.9% 1000ML BAG (SEPSIS BOLUS) IV ONE (07:00)
[2020-03-21] MEDS ORDERED: VANCOMYCIN 1 G PREMIX 200 ML IV ONE (07:00)
[2020-03-21 07:26] LABS: HEMATOCRIT. 40.1 % (42.0-52.0); HEMOGLOBIN. 13.7 g/dL (14.0-18.0); MEAN CORPUSCULAR HEMOGLOBIN 28.7 pg (28.0-32.0); MEAN CORPUSCULAR VOLUME 84.2 fL (80.0-94.0); PLATELET 327 x1000/uL (130-400); RED BLOOD CELL COUNT 4.76 mill/uL (4.7-6.1); RED CELL DISTRIBUTION WIDTH 14.9 % (11.6-14.6)
[2020-03-21 07:27] LABS: CHLORIDE 96 mEq/L (98-107)
[2020-03-21 07:31] LABS: INR 1.3; PROTHROMBIN TIME 13.3 sec (9.6-11.0)
[2020-03-21 07:36] LABS: CREATINE KINASE 24 IU/L (39-308)
[2020-03-21 07:47] LABS: CLARITY URINE CLEAR (CLEAR); COLOR URINE YELLOW (YELLOW); KETONES URINE 2+ (NEGATIVE); LEUKOCYTE ESTERASE URINE TRACE (NEGATIVE); NITRITE URINE NEGATIVE (NEGATIVE); OCCULT BLOOD URINE NEGATIVE (NEGATIVE); PROTEIN URINE TRACE (NEGATIVE)
[2020-03-21 07:49] LABS: PLATELET ESTIMATE NORMAL
[2020-03-21] MEDS ORDERED: IPRATROPIUM/ALBUTEROL 0.5-3(2.5)MG/3ML NEB HHN PRN (18:15)
[2020-03-21] MEDS ORDERED: GUAIFENESIN 200MG/10ML SUGAR FREE UDC PO PRN (18:15)
[2020-03-21] MEDS ORDERED: HYDROCODONE/ACETAMINOPHEN 5/325MG TABLET PO PRN (18:15)
[2020-03-21] MEDS ORDERED: CLONIDINE 0.1MG TABLET PO PRN (18:15)
[2020-03-21] MEDS ORDERED: DOCUSATE SODIUM 100MG CAPSULE PO PRN (18:15)
[2020-03-21] MEDS ORDERED: ACETAMINOPHEN 325MG TABLET PO PRN ×2 (18:15)
[2020-03-21] MEDS ORDERED: MAGNESIUM/ALUMINUM HYDROXIDE/SIMETHICONE 30ML UDC PO PRN (18:15)
[2020-03-21] MEDS ORDERED: ONDANSETRON HCL 4MG/2ML INJ IV PRN (18:15)
[2020-03-21] MEDS: SODIUM CHLORIDE 0.9% 1,000 ML IV SCH (18:36)
[2020-03-21] MEDS: LISINOPRIL 20MG TABLET PO SCH (18:50)
[2020-03-21] MEDS ORDERED: PIPERACILLIN/TAZOBACTAM 3.375 G in DEXT 5% WATER 100 ML IV SCH (19:00)
[2020-03-21] MEDS ORDERED: VANCOMYCIN 1250MG in DEXTROSE 5% WATER 250ML IV SCH ×4 (20:00)
[2020-03-21 22:00] VITALS: BP 147/70
[2020-03-21] MEDS ORDERED: DEXTROSE 50% WATER 50ML SYRINGE IV PRN (22:15)
[2020-03-21] MEDS: HEPARIN 5000 UNITS/ML VIAL SUBCUT SCH (22:58)
[2020-03-21] MEDS: ATORVASTATIN CALCIUM 40MG TABLET PO SCH (22:59)
[2020-03-21] MEDS: METOPROLOL TARTRATE 25MG TABLET PO SCH (22:59)
[2020-03-21] MEDS: LORAZEPAM 0.5MG TABLET PO PRN (22:59)
[2020-03-22] VITALS: BP 151/71
[2020-03-22] MEDS: PIPERACILLIN/TAZOBACTAM 3.375 G in DEXT 5% WATER 100 ML IV SCH ×3 (01:11→23:32)
[2020-03-22 04:00] VITALS: BP 151/71
[2020-03-22] MEDS: HEPARIN 5000 UNITS/ML VIAL SUBCUT SCH ×3 (05:35→21:10)
[2020-03-22 06:15] LABS: CHLORIDE 103 mEq/L (98-107)
[2020-03-22] MEDS: INSULIN LISPRO 100 UNITS/ML SUBCUT SCH ×3 (06:30→21:00)
[2020-03-22] MEDS: BLOOD SUGAR DIAGNOSTIC STRIP TEST SCH ×3 (06:30→21:00)
[2020-03-22 06:53] LABS: BASOPHILS % 0.4 % (0.0-2.0); EOSINOPHILS % 0.6 % (0.0-5.0); HEMATOCRIT. 39.5 % (42.0-52.0); LYMPHOCYTES % 8.9 % (20.0-50.0); MEAN CORPUSCULAR HEMOGLOBIN 27.7 pg (28.0-32.0); MEAN CORPUSCULAR VOLUME 84.4 fL (80.0-94.0); MEAN PLATELET VOLUME 8.1 fl (7.4-10.4); MONOCYTES % 8.5 % (2.0-8.0); NEUTROPHILS % 81.6 % (40.0-76.0); PLATELET 303 x1000/uL (130-400); RED BLOOD CELL COUNT 4.68 mill/uL (4.7-6.1); RED CELL DISTRIBUTION WIDTH 15.1 % (11.6-14.6)
[2020-03-22 08:00] VITALS: BP 131/65
[2020-03-22] MEDS ORDERED: VANCOMYCIN 1250MG in DEXTROSE 5% WATER 250ML IV SCH (09:00)
[2020-03-22] MEDS: METOPROLOL TARTRATE 25MG TABLET PO SCH ×2 (11:59→21:10)
[2020-03-22] MEDS: LISINOPRIL 20MG TABLET PO SCH (11:59)
[2020-03-22 12:00] VITALS: BP 125/63
[2020-03-22] MEDS: SODIUM CHLORIDE 0.9% 1,000 ML IV SCH ×2 (12:05→23:32)
[2020-03-22] MEDS ORDERED: VANCOMYCIN 1,250 MG in DEXT 5% WATER 250 ML IV SCH (14:00)
[2020-03-22] MEDS: LINEZOLID 600 MG PREMIX 300 ML IV SCH (14:52)
[2020-03-22 16:00] VITALS: BP 127/67
[2020-03-22] MEDS ORDERED: LIDOCAINE HCL 1% 20ML VIAL (Pyxis) INJ ONE (16:07)
[2020-03-22] MEDS ORDERED: BUPIVACAINE HCL/PF 0.5% (5MG/ML) 10ML ONE ×2 (16:07→16:08)
[2020-03-22] MEDS ORDERED: BACITRACIN 50,000 UNITS/VIAL ONE ×2 (16:08→18:41)
[2020-03-22] MEDS ORDERED: ROPIVACAINE HCL 10MG/ML 20 ML VIAL EPI ONE (16:11)
[2020-03-22] MEDS ORDERED: MIDAZOLAM HCL 2 MG/2 ML VIAL ONE (17:52)
[2020-03-22] MEDS ORDERED: LIDOCAINE HCL/PF 1% 10 MG/ML 5ML VIAL ONE (18:00)
[2020-03-22] MEDS ORDERED: DIPHENHYDRAMINE 50MG/ML VIAL ONE (18:32)
[2020-03-22 20:00] VITALS: BP 142/75
[2020-03-22] MEDS: ATORVASTATIN CALCIUM 40MG TABLET PO SCH (21:10)
[2020-03-22] MEDS: LORAZEPAM 0.5MG TABLET PO PRN (21:10)
[2020-03-23] VITALS: BP 137/50
[2020-03-23] MEDS: LINEZOLID 600 MG PREMIX 300 ML IV SCH ×2 (01:05→13:37)
[2020-03-23 04:00] VITALS: BP 131/59
[2020-03-23] MEDS: HEPARIN 5000 UNITS/ML VIAL SUBCUT SCH ×3 (05:06→21:03)
[2020-03-23] MEDS: PIPERACILLIN/TAZOBACTAM 3.375 G in DEXT 5% WATER 100 ML IV SCH ×4 (05:07→23:19)
[2020-03-23] MEDS: BLOOD SUGAR DIAGNOSTIC STRIP TEST SCH ×4 (06:34→21:09)
[2020-03-23] MEDS: INSULIN LISPRO 100 UNITS/ML SUBCUT SCH ×4 (06:37→21:25)
[2020-03-23 07:18] LABS: CHLORIDE 104 mEq/L (98-107)
[2020-03-23 08:00] VITALS: BP 122/68
[2020-03-23] MEDS: LISINOPRIL 20MG TABLET PO SCH (09:13)
[2020-03-23] MEDS: METOPROLOL TARTRATE 25MG TABLET PO SCH ×2 (09:13→20:40)
[2020-03-23 12:00] VITALS: BP 113/72
[2020-03-23 16:00] VITALS: BP_SYST 140; BP_DIAS 60; BP_DIAS 61
[2020-03-23 20:00] VITALS: BP 129/70
[2020-03-23] MEDS: ATORVASTATIN CALCIUM 40MG TABLET PO SCH (20:40)
[2020-03-23] MEDS: SODIUM CHLORIDE 0.9% 1,000 ML IV SCH (22:15)
[2020-03-24] VITALS: BP 106/47
[2020-03-24] MEDS: LINEZOLID 600 MG PREMIX 300 ML IV SCH ×2 (01:00→16:37)
[2020-03-24 04:00] VITALS: BP 146/81
[2020-03-24] MEDS: HEPARIN 5000 UNITS/ML VIAL SUBCUT SCH ×3 (05:18→21:35)
[2020-03-24] MEDS: PIPERACILLIN/TAZOBACTAM 3.375 G in DEXT 5% WATER 100 ML IV SCH ×3 (05:18→19:44)
[2020-03-24] MEDS: BLOOD SUGAR DIAGNOSTIC STRIP TEST SCH ×4 (06:34→21:35)
[2020-03-24] MEDS: INSULIN LISPRO 100 UNITS/ML SUBCUT SCH ×4 (06:34→21:36)
[2020-03-24 07:57] LABS: BASOPHILS % 0.6 % (0.0-2.0); EOSINOPHILS % 1.3 % (0.0-5.0); HEMATOCRIT. 42.4 % (42.0-52.0); LYMPHOCYTES % 22.8 % (20.0-50.0); MEAN CORPUSCULAR HEMOGLOBIN 28.1 pg (28.0-32.0); MEAN CORPUSCULAR VOLUME 84.9 fL (80.0-94.0); MEAN PLATELET VOLUME 8.2 fl (7.4-10.4); MONOCYTES % 8.1 % (2.0-8.0); NEUTROPHILS % 67.2 % (40.0-76.0); PLATELET 351 x1000/uL (130-400); RED BLOOD CELL COUNT 4.99 mill/uL (4.7-6.1); RED CELL DISTRIBUTION WIDTH 15.5 % (11.6-14.6)
[2020-03-24 08:00] VITALS: BP 111/62
[2020-03-24 08:05] LABS: CHLORIDE 101 mEq/L (98-107)
[2020-03-24] MEDS: METOPROLOL TARTRATE 25MG TABLET PO SCH ×2 (09:16→21:35)
[2020-03-24] MEDS: LISINOPRIL 20MG TABLET PO SCH (09:17)
[2020-03-24 12:00] VITALS: BP 145/71
[2020-03-24] MEDS: SODIUM CHLORIDE 0.9% 1,000 ML IV SCH (12:38)
[2020-03-24 16:00] VITALS: BP 173/121
[2020-03-24] MEDS: POLYETHYLENE GLYCOL 3350 (17GM) 1 DOSE PACK PO SCH (16:59)
[2020-03-24 20:00] VITALS: BP 133/79
[2020-03-24] MEDS: ATORVASTATIN CALCIUM 40MG TABLET PO SCH (21:35)
[2020-03-25] VITALS: BP 142/94
[2020-03-25] MEDS: PIPERACILLIN/TAZOBACTAM 3.375 G in DEXT 5% WATER 100 ML IV SCH ×3 (00:35→13:31)
[2020-03-25 04:00] VITALS: BP 137/71
[2020-03-25] MEDS: SODIUM CHLORIDE 0.9% 1,000 ML IV SCH (06:19)
[2020-03-25] MEDS: HEPARIN 5000 UNITS/ML VIAL SUBCUT SCH ×2 (06:20→13:31)
[2020-03-25] MEDS: BLOOD SUGAR DIAGNOSTIC STRIP TEST SCH ×2 (06:20→12:33)
[2020-03-25] MEDS: INSULIN LISPRO 100 UNITS/ML SUBCUT SCH ×2 (07:37→12:37)
[2020-03-25 08:00] VITALS: BP 117/68
[2020-03-25] MEDS: LISINOPRIL 20MG TABLET PO SCH (09:13)
[2020-03-25] MEDS: POLYETHYLENE GLYCOL 3350 (17GM) 1 DOSE PACK PO SCH (09:13)
[2020-03-25] MEDS: METOPROLOL TARTRATE 25MG TABLET PO SCH (09:14)
[2020-03-25 12:00] VITALS: BP 132/66
[2020-03-25] MEDS ORDERED: APIXABAN 5 MG TABLET PO SCH (14:00)
[2020-03-25 15:17] VITALS: BP 132/66
[2020-03-25 16:00] VITALS: BP 138/68
[2020-03-25] MEDS ORDERED: CEFEPIME 2,000 MG in DEXT 5% WATER 100 ML IV SCH (20:45)
[2020-04-06] MEDS ORDERED: CEFE2FRO IV (10:21)
== END 2020-03-25 16:35 | DRG 853 ==
LOC: ER 07:02 → 6WST 10:21 → EDBEDREQ 10:24 → EDBEDREQSVC 10:24 → ENRESERV 20:12
PROVIDERS: ADMIT Internal Medicine; ATTEND Internal Medicine
PROC: 0Y6P0Z0 Detachment at Right 1st Toe, Complete, Open Approach (ICD-10-PCS; principal; 2020-03-22)
PROC: 0QBN0ZZ Excision of Right Metatarsal, Open Approach (ICD-10-PCS; 2020-03-22)
DX: A41.9 Sepsis, unspecified organism (principal); G93.41 Metabolic encephalopathy; E87.1 Hypo-osmolality and hyponatremia; E11.52 Type 2 diabetes mellitus with diabetic peripheral angiopathy with gangrene; M86.171 Other acute osteomyelitis, right ankle and foot; L02.611 Cutaneous abscess of right foot; I96 Gangrene, not elsewhere classified; E11.621 Type 2 diabetes mellitus with foot ulcer; I48.91 Unspecified atrial fibrillation; D64.9 Anemia, unspecified; I25.10 Atherosclerotic heart disease of native coronary artery without angina pectoris; C44.90 Unspecified malignant neoplasm of skin, unspecified; I10 Essential (primary) hypertension; I65.22 Occlusion and stenosis of left carotid artery; E78.00 Pure hypercholesterolemia, unspecified; E11.42 Type 2 diabetes mellitus with diabetic polyneuropathy; F17.200 Nicotine dependence, unspecified, uncomplicated; L97.519 Non-pressure chronic ulcer of other part of right foot with unspecified severity; M85.80 Other specified disorders of bone density and structure, unspecified site; R26.9 Unspecified abnormalities of gait and mobility; Z20.828 Contact with and (suspected) exposure to other viral communicable diseases; W18.30XA Fall on same level, unspecified, initial encounter; Y93.89 Activity, other specified; I25.2 Old myocardial infarction; Y99.8 Other external cause status; Z79.84 Long term (current) use of oral hypoglycemic drugs; Z79.01 Long term (current) use of anticoagulants; Z79.899 Other long term (current) drug therapy; Z82.49 Family history of ischemic heart disease and other diseases of the circulatory system; Z95.5 Presence of coronary angioplasty implant and graft; Z83.3 Family history of diabetes mellitus; Z86.73 Personal history of transient ischemic attack (TIA), and cerebral infarction without residual deficits; Z91.19 Patient's noncompliance with other medical treatment and regimen; Y92.009 Unspecified place in unspecified non-institutional (private) residence as the place of occurrence of the external cause; L98.9 Disorder of the skin and subcutaneous tissue, unspecified
CPT/HCPCS: 36415; 71045; 73630; 80048; 80053; 80061; 80202; 81003; 82550; 82962; 83036; 83605; 84145; 84443; 84484; 85025; 86140; 87070; 87075; 87077; 87186; 87635; 88305; 88311; 92610; 93005; 93306; 93923; 96365; 97022; 97110; 97116; 97162; 97164; 97166; 99291; J1200; J1644; J1815; J2020; J2250; J2543; J2795; J3370; J3490; J7030; J7060